=== PATIENT | male | born 1970 | race Caucasian/White ===

== ENCOUNTER 2018-02-07 17:01 | Emergency (ER) | payer BC, OTHER ==
[2018-02-07] MEDS ORDERED: TETANUS & DIPHTHERIA TOX,ADULT 0.5 ML VIAL ONE (18:15)
[2018-02-07] MEDS ORDERED: AMOX/K CLAV 875 MG TAB ONE (18:15)
[2018-02-07] MEDS ORDERED: LIDOCAINE 1% MPF 30 ML VIAL ONE (18:16)
--- NOTE | 2018-02-07 18:48 | EDPHYS ---
Physician Documentation [facility] Name: Anil Haque Jr Age: 47 yrs Sex: Male : 1970 Arrival Date: 02/07/2018 Time: 17:04 Bed 19 Private MD: Cornelius Guzman H ED Physician Casey Huffman HPI: 02/07 17:46 This 47 yrs old Male presents to ER via Ambulatory with complaints of Dog jmm Bite. 17:46 The patient was bitten on the left jaw. Onset: The symptoms/episode began/occurred jmm acutely. Secondary to the bite the patient reports This is a 47 year old male with a history of HTN that presents to the ED with a laceration to the left jaw after a dog bit him. The dog belongs to a neighbor and unsure of immunization status. Patient is not UTD on tetanus immunization. . Historical: - Allergies: 17:08 No Known Allergies; aj1 - Home Meds: 17:08 Lisinopril Oral [Active]; Metoprolol Tartrate Oral [Active]; Nexium Oral [Active]; aj1 - PMHx: 17:08 Hypertension; GERD; aj1 - Immunization history:: Last tetanus immunization: unknown. - Social history:: Smoking status: Smoking status: Patient/guardian denies using tobacco. - Ebola Screening: : Patient denies travel to an Ebola-affected area in the 21 days before illness onset. ROS: 17:46 Constitutional: Negative for fever, chills, and weight loss, Cardiovascular: Negative jmm for chest pain, palpitations, and edema, Respiratory: Negative for shortness of breath, cough, wheezing, and pleuritic chest pain. 17:46 Skin: Positive for laceration(s). 17:46 All other systems are negative. Exam: 17:46 Constitutional: This is a well developed, well nourished patient who is awake, alert, jmm and in no acute distress. 17:46 Chest/axilla: Normal chest wall appearance and motion. Cardiovascular: Regular rate and rhythm. No edema appreciated Respiratory: Normal respirations, no respiratory distress appreciated Abdomen/GI: Non distended, soft 17:46 MS/ Extremity: Moves all extremities, no obvious deformities appreciated, no edema noted to the lower extremities Neuro: Awake and alert, normal gait Psych: Behavior is normal, Mood is normal, Patient is cooperative and pleasant 17:46 Head/face: 3 cm laceration noted ot the angle of the left jaw. . 17:46 Eyes: Extraocular movements: intact throughout. 17:46 Skin: laceration noted to the left angle of the jaw. Vital Signs: 17:08 BP 149 / 99; Pulse 90; Resp 18; Temp 98.0; Pulse Ox 96% on R/A; Weight 99.79 kg; Height aj1 6 ft. 0 in. (182.88 cm) (R); Pain 4/10; 17:08 Body Mass Index 29.84 (99.79 kg, 182.88 cm) aj1 Laceration: 21:18 Wound Repair of 3cm ( 1.2in ) subcutaneous laceration to left jaw. Distal jmm neuro/vascular/tendon intact. Anesthesia: Local anesthetic administered with 5 mls of 1% lidocaine. Wound prep: Moderate cleansing with betadine by me. Skin closed with 3 5-0 Prolene using simple sutures and sterile technique. Patient tolerated well. MDM: 17:26 Patient medically screened. [facility] 18:45 Data reviewed: vital signs, nurses notes, lab test result(s). Counseling: I had a [facility] detailed discussion with the patient and/or guardian regarding: the historical points, exam findings, and any diagnostic results supporting the discharge/admit diagnosis, the need for outpatient follow up, to return to the emergency department if symptoms worsen or persist or if there are any questions or concerns that arise at home. 18:45 ED course: Patient's wound was approximated. family given wound infection return [facility] precautions. patient understood and agrees with the plan of care. . Administered Medications: 18:13 Drug: Augmentin 875 mg Route: PO; em 18:54 Follow up: Response: No adverse reaction em 18:14 Drug: Tetanus-Diphtheria Toxoid Adult 0.5 ml {Clinical Care Manager: [employer]. Exp: em 03/14/2020. Lot #: [id number]. } Route: IM; Site: left deltoid; 18:54 Follow up: Response: No adverse reaction em 18:14 Drug: Lidocaine (1 %) 20 ml Volume: 20 ml; Route: Infiltration; Site: wound; em 18:54 Follow up: Response: No adverse reaction; Pain is decreased em Disposition: 12/16 09:21 Co-signature as Attending Physician, Casey Huffman MD. Disposition: 02/07/18 18:47 Discharged to Home. Impression: Facial laceration. - Condition is Stable. - Discharge Instructions: Facial Laceration, Animal Bite. - Prescriptions for Augmentin 875- 125 mg Oral Tablet - take 1 tablet by ORAL route every 12 hours for 10 days; 20 tablet. Ultram 50 mg Oral Tablet - take 1 tablet by ORAL route every 6 hours As needed; 12 tablet. - Medication Reconciliation Form, Thank You Letter, Antibiotic Education, Prescription Opioid Use form. - Follow up: Cornelius Guzman DO; When: 5 - 6 days; Reason: Recheck today's complaints, Continuance of care, Staple/Suture removal, Re-evaluation by your physician. Signatures: Treasure Lyon, RN RN aj1 Eric Valentine PA PA Luis Gramajo, INDUCTION MACHINE SETTER INDUCTION MACHINE SETTER em Casey Huffman MD MD Corrections: (The following items were deleted from the chart) 02/07 18:55 18:47 02/07/2018 18:47 Discharged to Home. Impression: Facial laceration. Condition is em Stable. Forms are Medication Reconciliation Form, Thank You Letter, Antibiotic Education, Prescription Opioid Use. Follow up: Cornelius Guzman; When: 5 - 6 days; Reason: Recheck today's complaints, Continuance of care, Staple/Suture removal, Re-evaluation by your physician. akil
--- NOTE | 2018-02-07 18:48 | ER ---
Nurse's Notes [facility] Name: Anil Haque Jr Age: 47 yrs Sex: Male : 1970 Arrival Date: 02/07/2018 Time: 17:04 Bed 19 Private MD: Cornelius Guzman H Diagnosis: Facial laceration Presentation: 02/07 17:05 Presenting complaint: Patient states: "My son told me there was a dog in my yard, it aj1 was out backyard neighbors dog, so I went out and I was trying to pick it up to put it over the fence and it bit me." Laceration noted to left jaw, bleeding lightly. Transition of care: patient was not received from another setting of care. Onset of symptoms was February 07, 2018. Risk Assessment: Do you want to hurt yourself or someone else? Patient reports no desire to harm self or others. Initial Sepsis Screen: Does the patient meet any 2 criteria? HR > 90 bpm. No. Patient's initial sepsis screen is negative. Does the patient have a suspected source of infection? Yes: Skin breakdown/wound. Care prior to arrival: None. 17:05 Method Of Arrival: Ambulatory aj1 17:05 Acuity: ANABELLE 4 aj1 Triage Assessment: 17:08 Bite description: bite sustained to left jaw by a dog, animal information: aj1 vaccination(s) is unknown. General: Appears in no apparent distress. comfortable, Behavior is calm, cooperative, appropriate for age. Pain: Complains of pain in left jaw Pain currently is 4 out of 10 on a pain scale. Neuro: Level of Consciousness is awake, alert, obeys commands, Oriented to person, place, time, situation. Cardiovascular: Patient's skin is warm and dry. Respiratory: Airway is patent Respiratory effort is even, unlabored, Respiratory pattern is regular, symmetrical. Historical: - Allergies: 17:08 No Known Allergies; aj1 - Home Meds: 17:08 Lisinopril Oral [Active]; Metoprolol Tartrate Oral [Active]; Nexium Oral [Active]; aj1 - PMHx: 17:08 Hypertension; GERD; aj1 - Immunization history:: Last tetanus immunization: unknown. - Social history:: Smoking status: Smoking status: Patient/guardian denies using tobacco. - Ebola Screening: : Patient denies travel to an Ebola-affected area in the 21 days before illness onset. Screenin:58 Abuse screen: Denies threats or abuse. Nutritional screening: No deficits noted. em Tuberculosis screening: No symptoms or risk factors identified. Fall Risk None identified. Assessment: 17:42 General: Appears in no apparent distress. comfortable, Behavior is calm, cooperative, em Smells of alcohol, Reports bit by dog about 1 hour ago. Pain: Complains of pain in left jaw Pain currently is 4 out of 10 on a pain scale. Neuro: Level of Consciousness is awake, alert, obeys commands, Oriented to person, place, time, situation. Cardiovascular: Capillary refill < 3 seconds Patient's skin is warm and dry. Respiratory: Airway is patent Respiratory effort is even, unlabored, Respiratory pattern is regular, symmetrical. Derm: Skin has skin tears on noted to the left chin Skin is pink, warm \\T\\ dry. Musculoskeletal: Range of motion: intact in all extremities. 18:00 General: The previous assessment is accurate. Call light remains within reach. ss 18:54 Reassessment: Patient appears in no apparent distress at this time. Patient and/or em family updated on plan of care and expected duration. Pain level reassessed. Patient is alert, oriented x 3, equal unlabored respirations, skin warm/dry/pink. Patient states feeling better. Vital Signs: 17:08 BP 149 / 99; Pulse 90; Resp 18; Temp 98.0; Pulse Ox 96% on R/A; Weight 99.79 kg; Height aj1 6 ft. 0 in. (182.88 cm) (R); Pain 4/10; 17:08 Body Mass Index 29.84 (99.79 kg, 182.88 cm) aj1 ED Course: 17:04 Patient arrived in ED. sb2 17:04 Cornelius Guzman DO is Private Physician. sb2 17:07 Triage completed. aj1 17:08 Arm band placed on Patient placed in an exam room. aj1 17:10 Eric Valentine PA is PHCP. [facility] 17:10 Casey Huffman MD is Attending Physician. [facility] 17:58 Luis Baxter LVN is Primary Nurse. em 17:58 Patient has correct armband on for positive identification. Bed in low position. Call em light in reach. Adult w/ patient. 18:30 Assist provider with laceration repair on left jaw that was between 2.6 to 7.5 cm using em sutures. Set up tray. Performed by Eric PENALOZA Dressed with 4X4s, Neosporin, Patient tolerated well. 18:45 Cornelius Guzman DO is Referral Physician. [facility] 18:54 Patient did not have IV access during this emergency room visit. em Administered Medications: 18:13 Drug: Augmentin 875 mg Route: PO; em 18:54 Follow up: Response: No adverse reaction em 18:14 Drug: Tetanus-Diphtheria Toxoid Adult 0.5 ml {Campus Wellness Coordinator: [employer]. Exp: em 03/14/2020. Lot #: [id number]. } Route: IM; Site: left deltoid; 18:54 Follow up: Response: No adverse reaction em 18:14 Drug: Lidocaine (1 %) 20 ml Volume: 20 ml; Route: Infiltration; Site: wound; em 18:54 Follow up: Response: No adverse reaction; Pain is decreased em Outcome: 18:47 Discharge ordered by MD. [facility] 18:54 Discharged to home ambulatory, with family. em 18:54 Condition: good 18:54 Discharge instructions given to patient, family, Instructed on discharge instructions, follow up and referral plans. medication usage, Demonstrated understanding of instructions, follow-up care, medications, Prescriptions given X 2. 18:55 Patient left the ED. em Signatures: Treasure Lyon, RN RN aj1 Eric Valentine PA PA [facility] Luis Baxter, MIG TIG WELDER MIG TIG WELDER em Barb Tafoya RN RN Gisele Yeager sb2
== END 2018-02-07 18:55 | disposition home or self-care (01) ==
LOC: ER 17:01
PROC: 0JQ10ZZ Repair Face Subcutaneous Tissue and Fascia, Open Approach (ICD-10-PCS; principal; 2018-02-07)
DX: S01.85XA Open bite of other part of head, initial encounter (principal); W54.0XXA Bitten by dog, initial encounter; Y93.9 Activity, unspecified; Y92.9 Unspecified place or not applicable; Z23 Encounter for immunization; I10 Essential (primary) hypertension; K21.9 Gastro-esophageal reflux disease without esophagitis
CPT/HCPCS: 90714; 99283

== ENCOUNTER 2024-04-14 11:57 | Emergency (ER) | payer BC, OTHER ==
--- NOTE | 2024-04-14 13:12 | RAD REPORT ---
EXAM: Knee Left 3 View INDICATION: SWELLING COMPARISON: None FINDINGS: No acute fracture. No significant knee effusion. Mild medial compartment spurring. Other: Prepatellar soft tissue swelling. IMPRESSION: No evidence of acute osseous abnormality involving the imaged knee. Prepatellar soft tiss ue swelling may be fluid within the bursa.
[2024-04-14 13:54] LABS: Absolute Basophils 0.1 K/uL (0-0.5); Absolute Eosinophils 0.5 K/uL (0-0.5); Absolute Lymphocytes (CBC) 1.9 K/uL (0.7-4.9); Absolute Monocytes 1.1 K/uL (0.1-1.3); Absolute Neutrophil 5.2 K/uL (1.8-8.0); Basophils % 1.2 % (0-1.3); Eosinophils % 5.5 % (0-4.4); Hemoglobin 15.4 g/dL (13.6-17.9); Lymphocytes % 21.4 % (15.3-44.8); MCH 35.3 pg (27.0-35.0); MPV 9.6 fL (7.6-11.3); Monocytes % 12.1 % (3.3-12.3); Neutrophils % 59.8 % (41.7-73.7); Nucleated Red Blood Cells % 0.1 % (0-0); Platelets 519 thou/uL (152-406); RBC Red Blood Cell Count 4.36 M/uL (4.33-5.43); Red Cell Distribution Width 13.8 % (12.1-15.2)
[2024-04-14 14:06] LABS: Albumin 3.5 g/dL (3.4-5.0); Albumin/Globulin Ratio 0.9 (1.1-1.8); Anion Gap 7.6 mEq/L (5.0-15.0); Bilirubin Total 0.5 mg/dL (0.2-1.0); Globulin 4.1 g/dL (2.3-3.5); Potassium 3.6 mEq/L (3.5-5.1); Protein, Total 7.6 g/dL (6.4-8.2)
[2024-04-14] MEDS ORDERED: NA CHLORIDE 0.9% 250 ML ONE (14:09)
[2024-04-14] MEDS ORDERED: VANCOMYCIN 1 GM/VIAL ONE (14:09)
--- NOTE | 2024-04-14 15:00 | EDPHYS ---
Physician Documentation [facility] Name: Anil Haque Jr Age: 53 yrs Sex: Male : 1970 Arrival Date: 04/14/2024 Time: 11:57 Bed 16 Private MD: ED Physician Christ Jean-Baptiste HPI: 04/14 14:13 This 53 yrs old Male presents to ER via Ambulatory with complaints of knee swelling. sp3 14:13 53-year-old male with history of hypertension and GERD presents with left knee swelling sp3 and erythema. Symptoms started proxy 1 week ago and since then patient is seen next over urgent care who prescribed him cephalexin p.o. Symptoms have not improved and the redness is getting worse. He denies any direct injury or break in the skin to his recollection. He denies any calf pain, distal numbness or tingling, proximal numbness or tingling or pain, chest pain, shortness of breath, fever, lymph node swelling or any other signs or symptoms on ROS at this time.. Historical: - Allergies: 12:09 No Known Allergies; ll1 - PMHx: 12:09 Hypertension; GERD; ll1 - PSHx: 12:09 None; ll1 - Immunization history:: Adult Immunizations up to date. - Infectious Disease History:: Denies. - Social history:: Smoking status: Patient denies any tobacco usage or history of. ROS: 14:14 Constitutional: Negative for fever, chills, and weight loss, Eyes: Negative for injury, sp3 pain, redness, and discharge, ENT: Negative for injury, pain, and discharge, Neck: Negative for injury, pain, and swelling, Cardiovascular: Negative for chest pain, palpitations, and edema, Respiratory: Negative for shortness of breath, cough, wheezing, and pleuritic chest pain, Abdomen/GI: Negative for abdominal pain, nausea, vomiting, diarrhea, and constipation, Back: Negative for injury and pain, Neuro: Negative for headache, weakness, numbness, tingling, and seizure, Psych: Negative for depression, anxiety, suicide ideation, homicidal ideation, and hallucinations, Allergy/Immunology: Negative for hives, rash, and allergies, Endocrine: Negative for neck swelling, polydipsia, polyuria, polyphagia, and marked weight changes, Hematologic/Lymphatic: Negative for swollen nodes, abnormal bleeding, and unusual bruising, 14:14 All other systems are negative, Exam: 14:16 Constitutional: This is a well developed, well nourished patient who is awake, alert, sp3 and in no acute distress. Head/Face: Normocephalic, atraumatic. Eyes: Pupils equal round and reactive to light, extra-ocular motions intact. Lids and lashes normal. Conjunctiva and sclera are non-icteric and not injected. Cornea within normal limits. Periorbital areas with no swelling, redness, or edema. ENT: Nares patent. No nasal discharge, no septal abnormalities noted. External auditory canals are clear. Oropharynx with no redness, swelling, or masses, exudates, or evidence of obstruction, uvula midline. Mucous membranes moist. Neck: Trachea midline, no thyromegaly or masses palpated, and no cervical lymphadenopathy. Supple, full range of motion without nuchal rigidity, or vertebral point tenderness. No Meningismus. Chest/axilla: Normal chest wall appearance and motion. Nontender with no deformity. No lesions are appreciated. Cardiovascular: Regular rate and rhythm with a normal S1 and S2. No gallops, murmurs, or rubs. Normal PMI, no JVD. No pulse deficits. Respiratory: Lungs have equal breath sounds bilaterally, clear to auscultation and percussion. No rales, rhonchi or wheezes noted. No increased work of breathing, no retractions or nasal flaring. Abdomen/GI: Soft, non-tender, with normal bowel sounds. No distension or tympany. No guarding or rebound. No evidence of tenderness throughout. Back: No spinal tenderness. No costovertebral tenderness. Full range of motion. Neuro: Awake and alert, GCS 15, oriented to person, place, time, and situation. Cranial nerves II-XII grossly intact. Motor strength 5/5 in all extremities. Sensory grossly intact. Cerebellar exam normal. Normal gait. Psych: Awake, alert, with orientation to person, place and time. Behavior, mood, and affect are within normal limits. 14:16 Musculoskeletal/extremity: Left knee erythema on patella and lateral inferior bursa area. No calf tenderness or distal swelling or proximal swelling. Very small knee effusion appreciated. Distal neurovascular exam is normal.. Vital Signs: 12:08 BP 161 / 88; Pulse 81; Resp 17; Temp 97.1; Pulse Ox 100% ; Weight 102.06 kg; Height 6 ll1 ft. 0 in. ; Pain 5/10; 13:56 BP 124 / 93; Pulse 81; Resp 16; Pulse Ox 97% ; me1 15:00 BP 128 / 86; Pulse 74; Resp 16; Pulse Ox 97% ; me1 16:00 BP 145 / 92; Pulse 76; Resp 16; Temp 98.4; Pulse Ox 98% ; me1 12:08 Body Mass Index 30.52 (102.06 kg, 182.88 cm) ll1 12:08 Pain Scale: Adult ll1 MDM: 12:44 Medical Screening Exam initiated sp3 14:20 Data reviewed: vital signs, nurses notes, lab test result(s), radiologic studies. ED sp3 course: Left knee cellulitis and bursitis noted. X-ray demonstrates swelling in the bursa without significant effusion. Clinically I am not highly suspicious of DVT. No fracture noted. Laboratory values normal including WBC. Cultures pending. I am not highly suspicious of septic joint/knee. Vital signs are normal and patient is afebrile. We will administer vancomycin 1 g IV and discharged on Bactrim and topical Bactroban.. 04/14 12:45 Order name: Blood Culture Adult (2) sp3 04/14 12:45 Order name: CBC with Diff; Complete Time: 14:07 sp3 04/14 12:45 Order name: CMP; Complete Time: 14:07 sp3 04/14 13:10 Order name: Knee Left 3 View; Complete Time: 13:30 EDMS 04/14 12:45 Order name: IV Saline Lock - Large Bore; Complete Time: 13:25 sp3 04/14 12:45 Order name: Labs collected and sent; Complete Time: 13:25 sp3 04/14 12:45 Order name: Vital Signs; Complete Time: 15:03 sp3 Administered Medications: 14:14 Drug: vancoMYCIN IVPB 1 grams IVPB once over 2 hrs Route: IVPB; Infused Over: 2 hrs; me1 Site: left antecubital; 16:21 Follow up: IV Status: Completed infusion; IV Intake: 250ml me1 Disposition Summary: 04/14/24 15:00 Discharge Ordered Notes: Location: Home sp3 Condition: Stable sp3 Diagnosis - Cellulitis, bursitis sp3 Followup: sp3 - With: Private Physician - When: Upon discharge from the Emergency Department - Reason: If symptoms return Discharge Instructions: - Discharge Summary Sheet sp3 - Cellulitis, Adult sp3 - Prepatellar Bursitis sp3 Forms: - Medication Reconciliation Form sp3 - Antibiotic Education sp3 - Prescription Opioid Use sp3 - Patient Portal Instructions sp3 - Leadership Thank You Letter sp3 - Work release form me1 Prescriptions: - mupirocin 2 % Topical ointment - apply 1 application TOPICAL route 3 times per day; 21 application; Refills: 0, sp3 Product Selection Permitted - Bactrim DS 800-160 mg Oral Tablet - take 1 tablet ORAL route every 12 hours for 7 days; 14 tablet; Refills: 0, sp3 Product Selection Permitted Signatures: Dispatcher [employer] EDCastillo Gonzalez, RN RN ll1 Christ Jean-Baptiste MD MD sp3 Nela Brannon RN RN me1 Corrections: (The following items were deleted from the chart) 12:45 12:45 Knee Left 2 View+RAD.RAD.BRZ ordered. EDMS EDMS 12:46 12:45 BLOOD CULTURE*+BA.LAB.BRZ ordered. EDMS EDMS 12:46 12:45 CBC+H.LAB.BRZ ordered. EDMS EDMS 12:46 12:45 COMPREHENSIVE METABOLIC PANEL+C.LAB.BRZ ordered. EDMS EDMS
--- NOTE | 2024-04-14 15:00 | ER ---
Nurse's Notes [facility] Name: Anil Haque Jr Age: 53 yrs Sex: Male : 1970 Arrival Date: 04/14/2024 Time: 11:57 Bed 16 Private MD: Diagnosis: Cellulitis, bursitis Presentation: 04/14 12:08 Chief complaint: Patient states: L knee pain and swelling for 1 week. On antibiotics ll1 since . Site is better, but not fully back to normal. Coronavirus screen: Client denies travel out of the [place] in the last 14 days. At this time, the client does not indicate any symptoms associated with coronavirus-19. Ebola Screen: Patient denies travel to an Ebola-affected area in the 21 days before illness onset. Initial Sepsis Screen: Does the patient meet any 2 criteria? No. Patient's initial sepsis screen is negative. Does the patient have a suspected source of infection? No. Patient's initial sepsis screen is negative. Risk Assessment: Do you want to hurt yourself or someone else? Patient reports no desire to harm self or others. Onset of symptoms was April 07, 2024. 12:08 Method Of Arrival: Ambulatory ll1 12:08 Acuity: ANABELLE 3 ll1 Triage Assessment: 12:09 General: Appears uncomfortable, Behavior is calm, cooperative, appropriate for age. ll1 Pain: Complains of pain in L knee Quality of pain is described as aching. Derm: Reports redness L knee. Musculoskeletal: Reports pain in L knee. Historical: - Allergies: 12:09 No Known Allergies; ll1 - PMHx: 12:09 Hypertension; GERD; ll1 - PSHx: 12:09 None; ll1 - Immunization history:: Adult Immunizations up to date. - Infectious Disease History:: Denies. - Social history:: Smoking status: Patient denies any tobacco usage or history of. Screenin:53 [facility] ED Fall Risk Assessment (Adult) History of falling in the last 3 months, me1 including since admission No falls in past 3 months (0 pts) Confusion or Disorientation No (0 pts) Intoxicated or Sedated No (0 pts) Impaired Gait Yes (1 pt) Mobility Assist Device Used No (0 pt) Altered Elimination No (0 pt) Score/Fall Risk Level 0 - 2 = Low Risk Maintained a safe environment, Provided non-skid footwear, Hourly rounding (assess needs \T\ fall precautionary measures) done. Abuse screen: Denies threats or abuse. Nutritional screening: No deficits noted. Tuberculosis screening: No symptoms or risk factors identified. Assessment: 13:48 Reassessment: Patient and/or family updated on plan of care and expected duration. Pain ll1 level reassessed. 13:53 General: Appears uncomfortable, well groomed, well developed, well nourished, Behavior me1 is calm, cooperative, appropriate for age, Reports L knee pain and swelling for 1 week. On antibiotics since . Site is better, but not fully back to normal. Pain: Complains of pain in left knee Pain does not radiate. Pain currently is 3 out of 10 on a pain scale. Quality of pain is described as tender, Pain began gradually, a week ago Is continuous. Neuro: Level of Consciousness is awake, alert, obeys commands, Oriented to person, place, time, situation, Appropriate for age. Cardiovascular: Patient's skin is warm and dry. Respiratory: Airway is patent Respiratory effort is even, unlabored, Respiratory pattern is regular, symmetrical. GI: No signs and/or symptoms were reported involving the gastrointestinal system. : No signs and/or symptoms were reported regarding the genitourinary system. EENT: No signs and/or symptoms were reported regarding the EENT system. Derm: Wound noted left knee Wound is redness, warmth and swelling to left knee. Musculoskeletal: Reports pain in left knee. 15:02 General: Discharge delayed to complete vancomycin. . me1 Vital Signs: 12:08 BP 161 / 88; Pulse 81; Resp 17; Temp 97.1; Pulse Ox 100% ; Weight 102.06 kg; Height 6 ll1 ft. 0 in. ; Pain 5/10; 13:56 BP 124 / 93; Pulse 81; Resp 16; Pulse Ox 97% ; me1 15:00 BP 128 / 86; Pulse 74; Resp 16; Pulse Ox 97% ; me1 16:00 BP 145 / 92; Pulse 76; Resp 16; Temp 98.4; Pulse Ox 98% ; me1 12:08 Body Mass Index 30.52 (102.06 kg, 182.88 cm) 1 12:08 Pain Scale: Adult ll1 ED Course: 12:03 Patient arrived in ED. al6 12:09 Triage completed. ll1 12:10 Arm band placed on. ll1 12:17 Christ Jean-Baptiste MD is Attending Physician. sp3 13:10 Knee Left 3 View In Process Unspecified. EDMS 13:20 First set of blood cultures drawn by me. 6 13:25 Blood Culture Adult (2) Sent. 6 13:25 CBC with Diff Sent. 6 13:25 CMP Sent. 6 13:25 Initial lab(s) drawn, by me, sent to lab. Inserted saline lock: 20 gauge in left 6 antecubital area, using aseptic technique. Blood collected. Flushed with 10 mL NS. 13:48 Patient placed in an exam room, on a stretcher. 1 13:49 Nela Brannon, RN is Primary Nurse. me1 13:53 Patient has correct armband on for positive identification. Bed in low position. Call me1 light in reach. Side rails up X 1. Provided Education on: POC. Verbalized understanding.. Client placed on continuous cardiac and pulse oximetry monitoring. NIBP monitoring applied. Pulse ox on. NIBP on. 13:53 No provider procedures requiring assistance completed. me1 16:24 IV discontinued, intact, bleeding controlled, No redness/swelling at site. Pressure me1 dressing applied. Administered Medications: 14:14 Drug: vancoMYCIN IVPB 1 grams IVPB once over 2 hrs Route: IVPB; Infused Over: 2 hrs; me1 Site: left antecubital; 16:21 Follow up: IV Status: Completed infusion; IV Intake: 250ml me1 Medication: 13:53 VIS not applicable for this client. me1 Intake: 16:21 IV: 250ml; Total: 250ml. me1 Outcome: 15:00 Discharge ordered by . sp3 16:24 Discharged to home ambulatory, me1 16:24 Condition: stable 16:24 Discharge instructions given to patient, Instructed on discharge instructions, follow up and referral plans. medication usage, Demonstrated understanding of instructions, follow-up care, medications, Prescriptions given X 2, 16:25 Patient left the ED. me1 Signatures: Dispatcher [employer] EDIL Castillo Estrada RN RN 1 Christ Jean-Baptiste MD MD sp3 [facility] Nela Brannon, RN RN me1 Tess [email or web address] Corrections: (The following items were deleted from the chart) 13:53 12:08 Chief complaint: Patient states: L knee pain and swelling for 1 week. On me1 antibiotics since . Site is better, but not fully back to normal. ll1
[2024-04-14 19:24] VITALS: BP 145/92; TEMP 98.4; O2SAT 98
== END 2024-04-14 16:25 | disposition home or self-care (01) ==
LOC: ER 11:57
DX: L03.116 Cellulitis of left lower limb (principal); M70.52 Other bursitis of knee, left knee
CPT/HCPCS: 87040 ×2; 85025; 36415; 80053; 73562; J7050